=== PATIENT | female | born 1975 | race Caucasian/White ===

== ENCOUNTER → 2020-01-02 | Outpatient (CLI) | payer OTHER ==
[2020-01-02 13:43] VITALS: BP 149/99
== END | disposition home or self-care (01) ==
LOC: SURG 12:11
PROVIDERS: ATTEND Anesthesiology Pain Medicine
DX: M54.16 Radiculopathy, lumbar region (principal); M47.816 Spondylosis without myelopathy or radiculopathy, lumbar region; Z79.891 Long term (current) use of opiate analgesic; Z98.890 Other specified postprocedural states
CPT/HCPCS: 62323

== ENCOUNTER 2020-11-23 23:50 | Emergency (ER) | payer OTHER ==
[~2020-11-23] VITALS: Ht 165.1 cm; Wt 117.0 kg
[2020-11-24] MEDS ORDERED: DEXAMETHASONE SOD PHOS 4 MG/ML VIAL. ONE (00:49)
[2020-11-24] MEDS ORDERED: KETOROLAC 15 MG/ML VIAL. ONE (00:49)
[2020-11-24] MEDS ORDERED: IV NORMAL SALINE 1,000ML 1,000 ML IV ONE (01:15)
[2020-11-24] MEDS ORDERED: KETOROLAC 15 MG/ML VIAL. IVP ONE (01:15)
--- NOTE | 2020-11-24 01:18 | EKG ---
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
[2020-11-24] MEDS ORDERED: DEXAMETHASONE SOD PHOS 4 MG/ML VIAL. IV ONE (01:30)
[2020-11-24] MEDS ORDERED: CONTRAST GIVEN. MC PRN (01:30)
[2020-11-24] MEDS ORDERED: IOHEXOL 350 MG/ML 100 ML VIAL. IV ONE (01:30)
[2020-11-24 01:39] LABS: BASO % 0 % (0-3); EOS # 0.1 x10^3/uL (0.0-0.7); EOS % 1 % (0-3); HEMATOCRIT 48.2 % (36.0-47.0); HEMOGLOBIN 15.8 g/dL (12.0-15.5); LYMPH # 1.2 x10^3/uL (1.0-4.8); LYMPH % 14 % (24-48); MEAN CORPUSCULAR HEMOGLOBIN 28 pg (25-35); MEAN CORPUSCULAR HGB CONC 33 g/dL (31-37); MEAN CORPUSCULAR VOLUME 86 fL (79-100); MONO # 0.4 x10^3/uL (0.0-1.1); MONO % 4 % (0-9); NEUT # 7.1 x10^3uL (1.8-7.7); NEUT % 81 % (31-73); PLATELET COUNT 200 x10^3/uL (140-400); RED BLOOD COUNT 5.57 x10^6/uL (3.50-5.40); RED CELL DISTRIBUTION WIDTH 12.9 % (11.5-14.5); WHITE BLOOD COUNT 8.8 x10^3/uL (4.0-11.0)
[2020-11-24 01:47] LABS: ANION GAP 12 (6-14); BLOOD UREA NITROGEN 14 mg/dL (7-20); BUN/CREATININE RATIO 16 (6-20); CALCIUM 8.7 mg/dL (8.5-10.1); CARBON DIOXIDE 27 mmol/L (21-32); CHLORIDE 100 mmol/L (98-107); CREATININE 0.9 mg/dL (0.6-1.0); GFR 67.4; GLUCOSE 112 mg/dL (70-99); POTASSIUM 3.9 mmol/L (3.5-5.1); SODIUM 139 mmol/L (136-145)
[2020-11-24 02:05] LABS: ALBUMIN 3.9 g/dL (3.4-5.0); ALBUMIN/GLOBULIN RATIO 1.1 (1.0-1.7); ALK PHOS 126 U/L (46-116); ALT (SGPT) 21 U/L (14-59); AST (SGOT) 23 U/L (15-37); LIPASE 76 U/L (73-393); TOTAL BILIRUBIN 0.2 mg/dL (0.2-1.0); TOTAL PROTEIN 7.5 g/dL (6.4-8.2)
--- NOTE | 2020-11-24 02:59 | RAD ---
PQRS Compliance Statement: One or more of the following individualized dose reduction techniques were utilized for this examinat ion: 1. Automated exposure control 2. Adjustment of the mA and/or kV according to patient size 3. Use of iterative reconstruction technique CTA CHEST 11/24/2020 2:[address] angiography chest with contrast 11/24/2020 2:13 AM INDICATION: Covid patient under investigation. COMPARISON: None available TECHNIQUE: Axial CT images of the chest were obtained after the intravenous administration of nonioni c contrast. Coronal and sagittal reformats are provided. Maximum intensity projection images of the t horacic vasculature are provided. FINDINGS: The thyroid gland is normal in appearance. There is a 10 mm right hilar lymph node (series 6, image 4 7). The heart size is within normal limits. No significant pericardial effusion. Thoracic aorta is no rmal in course and caliber. There is adequate opacification of the pulmonary arterial system. There there are no filling defects within the pulmonary arterial system to suggest acute or chronic pulmonary embolus. There are no suspicious solid noncalcified pulmonary nodules. Patchy nodular groundglass opacities ar e identified within the superior segment left lower lobe measuring up to 1.5 x 1.5 cm (series 6, imag e 60), central right upper lobe and throughout the right lower lobe measuring up to 2.2 x 1.7 cm (ser ies 6, image 53). There are no pleural effusions. No pulmonary vascular congestion or pneumothorax. Visualized portions of the upper abdomen are within normal limits. No suspicious osseous lesions are visualized. Battery pack projects over the right gluteal soft tissues with epidural spinal leads iden tified terminating at the T7 vertebral level. IMPRESSION: There is no evidence for acute or chronic pulmonary embolism. Patchy nodular groundglass opacities are identified within the lungs predominantly involving the lowe r lobes bilaterally. Findings are suspicious for pneumonitis of infectious/inflammatory etiology. 3 m onth follow-up chest CT is recommended to ensure resolution. Borderline right hilar lymph node may be reactive. Attention on follow-up exam is recommended. Electronically signed by: Lexy Schulte MD (11/24/2020 2:56 AM) [facility]
[2020-11-24] MEDS ORDERED: AZIT250T6 PO (03:06)
--- NOTE | 2020-11-24 03:06 | PHYS DOC ---
Past History Past Medical History: No Pertinent History Past Surgical History: , Other Additional Past Surgical Histo: lumbar disectomy and fusion L5 & S1, neuro stimulator rt back, gastric slee Alcohol Use: None General Adult EDM: Chief Complaint: COUGH HPI: HPI: Patient is a [age] year old [sex] who presents with [] Review of Systems: Review of Systems: Constitutional: Denies fever or chills Eyes: Denies change in visual acuity HENT: Denies nasal congestion or sore throat Respiratory: Denies cough or shortness of breath Cardiovascular: Denies chest pain or edema GI: Denies abdominal pain, nausea, vomiting, bloody stools or diarrhea : Denies dysuria Musculoskeletal: Denies back pain or joint pain Integument: Denies rash Neurologic: Denies headache, focal weakness or sensory changes Endocrine: Denies polyuria or polydipsia Lymphatic: Denies swollen glands Psychiatric: Denies depression or anxiety Current Medications: Current Meds: Current Medications Medications (Trade) Dose Ordered Sig/Jaky Start Time Stop Time Status Last Admin Dose Admin Dexamethasone Sodium Phosphate (Decadron) 10 mg 1X ONCE 11/24/20 01:30 11/24/20 01:31 DC 11/24/20 02:40 10 MG Info (Do NOT chart on this entry -- for MONITORING) 1 each PRN DAILY PRN 11/24/20 01:30 11/26/20 01:29 Iohexol (Omnipaque 350 Mg/ml) 100 ml 1X ONCE 11/24/20 01:30 11/24/20 01:31 DC 11/24/20 02:21 100 ML Ketorolac Tromethamine (Toradol 15mg Vial) 15 mg 1X ONCE 11/24/20 01:15 11/24/20 01:17 DC 11/24/20 02:40 15 MG Sodium Chloride 1,000 ml @ 1,000 mls/hr 1X ONCE 11/24/20 01:15 11/24/20 02:14 DC 11/24/20 02:41 1,000 MLS/HR Allergies: Allergies: Allergies Coded Allergies Type Severity Reaction Last Updated Verified No Known Drug Allergies 01/02/20 No Physical Exam: PE: Constitutional: Well developed, well nourished, no acute distress, non-toxic appearance. [] HENT: Normocephalic, atraumatic, bilateral external ears normal, oropharynx moist, no oral exudates, nose normal. [] Eyes: PERRLA, EOMI, conjunctiva normal, no discharge. [] Neck: Normal range of motion, no tenderness, supple, no stridor. [] Cardiovascular:Heart rate regular rhythm, no murmur [] Lungs & Thorax: Bilateral breath sounds clear to auscultation [] Abdomen: Bowel sounds normal, soft, no tenderness, no masses, no pulsatile masses. [] Skin: Warm, dry, no erythema, no rash. [] Back: No tenderness, no CVA tenderness. [] Extremities: No tenderness, no cyanosis, no clubbing, ROM intact, no edema. [] Neurologic: Alert and oriented X 3, normal motor function, normal sensory function, no focal deficits noted. [] Psychologic: Affect normal, judgement normal, mood normal. [] Current Patient Data: Labs: Laboratory Tests Test 11/24/20 01:00 White Blood Count 8.8 x10^3/uL (4.0-11.0) Red Blood Count 5.57 x10^6/uL (3.50-5.40) H Hemoglobin 15.8 g/dL (12.0-15.5) H Hematocrit 48.2 % (36.0-47.0) H Mean Corpuscular Volume 86 fL (79-100) Mean Corpuscular Hemoglobin 28 pg (25-35) Mean Corpuscular Hemoglobin Concent 33 g/dL (31-37) Red Cell Distribution Width 12.9 % (11.5-14.5) Platelet Count 200 x10^3/uL (140-400) Neutrophils (%) (Auto) 81 % (31-73) H Lymphocytes (%) (Auto) 14 % (24-48) L Monocytes (%) (Auto) 4 % (0-9) Eosinophils (%) (Auto) 1 % (0-3) Basophils (%) (Auto) 0 % (0-3) Neutrophils # (Auto) 7.1 x10^3uL (1.8-7.7) Lymphocytes # (Auto) 1.2 x10^3/uL (1.0-4.8) Monocytes # (Auto) 0.4 x10^3/uL (0.0-1.1) Eosinophils # (Auto) 0.1 x10^3/uL (0.0-0.7) Basophils # (Auto) 0.0 x10^3/uL (0.0-0.2) Prothrombin Time 9.5 SEC (9.4-11.4) Prothrombin Time INR 0.9 (0.9-1.1) Activated Partial Thromboplast Time 27 SEC (23-33) Sodium Level 139 mmol/L (136-145) Potassium Level 3.9 mmol/L (3.5-5.1) Chloride Level 100 mmol/L (98-107) Carbon Dioxide Level 27 mmol/L (21-32) Anion Gap 12 (6-14) Blood Urea Nitrogen 14 mg/dL (7-20) Creatinine 0.9 mg/dL (0.6-1.0) Estimated GFR (Cockcroft-Gault) 67.4 BUN/Creatinine Ratio 16 (6-20) Glucose Level 112 mg/dL (70-99) H Lactic Acid Level 1.9 mmol/L (0.4-2.0) Calcium Level 8.7 mg/dL (8.5-10.1) Magnesium Level 2.0 mg/dL (1.8-2.4) Total Bilirubin 0.2 mg/dL (0.2-1.0) Aspartate Amino Transferase (AST) 23 U/L (15-37) Alanine Aminotransferase (ALT) 21 U/L (14-59) Alkaline Phosphatase 126 U/L (46-116) H Creatine Kinase 44 U/L (26-192) Creatine Kinase MB (Mass) < 0.5 ng/mL (0.0-3.6) Creatine Kinase MB Relative Index 1.1 % (0-4) Troponin I Quantitative < 0.017 ng/mL (0-0.055) Total Protein 7.5 g/dL (6.4-8.2) Albumin 3.9 g/dL (3.4-5.0) Albumin/Globulin Ratio 1.1 (1.0-1.7) Lipase 76 U/L (73-393) Vital Signs: Vital Signs Date Time Temp Pulse Resp B/P (MAP) Pulse Ox O2 Delivery O2 Flow Rate FiO2 11/23/20 23:50 101.0 122 18 149/99 (116) 97 Room Air EKG: EKG: @0110 Sinus tachycardia at 113bpm, NO ST elevation, Q wave in III, low voltage QRS, QRS 64ms, QT/QTc 318/442ms Radiology/Procedures: Radiology/Procedures: PROCEDURE: CT ANGIOGRAPHY CHEST PQRS Compliance Statement: One or more of the following individualized dose reduction techniques were utilized for this examination: 1. Automated exposure control 2. Adjustment of the mA and/or kV according to patient size 3. Use of iterative reconstruction technique CTA CHEST 11/24/2020 2:[address] angiography chest with contrast 11/24/2020 2:13 AM INDICATION: Covid patient under investigation. COMPARISON: None available TECHNIQUE: Axial CT images of the chest were obtained after the intravenous admi nistration of nonionic contrast. Coronal and sagittal reformats are provided. Maximum intensity projection images of the thoracic vasculature are provided. FINDINGS: The thyroid gland is normal in appearance. There is a 10 mm right hilar lymph node (series 6, image 47). The heart size is within normal limits. No significant pericardial effusion. Thoracic aorta is normal in course and caliber. There is adequate opacification of the pulmonary arterial system. There there are no filling defects within the pulmonary arterial system to suggest acute or chronic pulmonary embolus. There are no suspicious solid noncalcified pulmonary nodules. Patchy nodular groundglass opacities are identified within the superior segment left lower lobe measuring up to 1.5 x 1.5 cm (series 6, image 60), central right upper lobe and throughout the right lower lobe measuring up to 2.2 x 1.7 cm (series 6, image 53). There are no pleural effusions. No pulmonary vascular congestion or pneumothorax. Visualized portions of the upper abdomen are within normal limits. No suspicious osseous lesions are visualized. Battery pack projects over the right gluteal soft tissues with epidural spinal leads identified terminating at the T7 vertebral level. IMPRESSION: There is no evidence for acute or chronic pulmonary embolism. Patchy nodular groundglass opacities are identified within the lungs predominantly involving the lower lobes bilaterally. Findings are suspicious for pneumonitis of infectious/inflammatory etiology. 3 month follow-up chest CT is recommended to ensure resolution. Borderline right hilar lymph node may be reactive. Attention on follow-up exam is recommended. Electronically signed by: Lexy Schulte MD (11/24/2020 2:56 AM) [facility] Heart Score: Risk Factors: Risk Factors: DM, Current or recent (<one month) smoker, HTN, HLP, family history of CAD, obesity. Risk Scores: Score 0 - 3: 2.5% MACE over next 6 weeks - Discharge Home Score 4 - 6: 20.3% MACE over next 6 weeks - Admit for Clinical Observation Score 7 - 10: 72.7% MACE over next 6 weeks - Early Invasive Strategies Course & Med Decision Making: Course & Med Decision Making Pertinent Labs and Imaging studies reviewed. (See chart for details) [] Dragon Disclaimer: Dragon Disclaimer: This electronic medical record was generated, in whole or in part, using a voice recognition dictation system. Departure Departure: Impression: Primary Impression: Suspected 2019 novel coronavirus infection Disposition: DC HOME SELF CARE/HOMELESS Condition: STABLE Referrals: CAROLINA ERWIN MD (PCP) Patient Instructions: Incentive Spirometer, Viral Syndrome Additional Instructions: You have been tested for or diagnosed with COVID-19. It is an infection caused by a new type of coronavirus. COVID-19 will cause cold-like or mild flu symptoms in most. It can cause more severe symptoms like problems breathing in some. There is no treatment for COVID-19. The body will clear the infection over time. Self-care will help to ease discomfort. Steps to Take: Self-Care Rest as needed. Healthy habits may help you feel better. Steps include: Choose healthy foods including fruits and vegetables. Drink water throughout the day. Get plenty of sleep each night. If you smoke, try to quit. It may ease breathing. Avoid alcohol. Keep Others Healthy The virus can spread to others. Droplets are released every time you sneeze or cough. The droplets can get into the mouth, nose, or eyes of people near you and lead to infection. To lower the chances of spreading COVID-19 to others: Stay at home until your doctor has said it is safe to leave. If you tested positive this will mean staying isolated until both of the following are true: At least 7 days have passed since the start of illness. You are free of fever for at least 72 hours without the use of medicine. During this time: - Avoid public areas, events, or transportation. Do not return to work or school until your doctor has said it is safe to do so. - Call ahead if you need to go to a medical center. Let them know you may have COVID-19. It will help them guide you where to go. They may also ask you to wear a facemask when you come to the office. - If you call for emergency medical services, let them know you may have COVID- 19. While at home: - Try to avoid close contact with others. Stay about 6 feet away. - If possible, spend most of your time in a separate room from others. - Use a face mask if you will be in close contact with others such as sharing a room or vehicle. - Have someone wipe down common surfaces in the home. Use household bead wire taper every day on areas like doorknobs, counters, or sinks. - Cough or sneeze into a tissue. Throw the tissue away right after use. If a tissue is not available, cough or sneeze into your elbow. - Wash your hands often. Wash them after sneezing or coughing. Use soap and water and wash for at least 20 seconds. Alcohol based hand cleaner wall can be used if soap and water is not available. - Do not prepare food for others. Avoid sharing personal items like forks, spoons, or toothbrushes. - Avoid close contact with pets while you are sick. There is no evidence of the virus passing to pets. This is a safety step until more is known about this virus. Isolation can be frustrating. Social interaction can help. Keep in touch with friends and family through phone and tech options. You can still interact with others in your home, just keep a safe distance of about 6 feet. Follow-up: Your doctors office will check in with you to see if there are any changes in your health. You may be asked to keep track of symptoms to share with them. They will also let you know when you are clear to be in public again. Problems to Look Out For: Contact your doctor if your recovery is not going as you expect. Get emergency care if you have problems such as: - Trouble breathing - Nonstop chest pain or pressure - Changes in awareness, confusion, or problems waking - Lips or face have bluish color - Worsening of symptoms If you think you have an emergency, call for emergency medical services right away. [facility] Azithromycin (AZITHROMYCIN TABLET) 250 Mg Tablet 1 PKG PO UD for COVID pneumonia, #6 TAB Take 2 tablets today and then one tablet every day thereafter for the next 4 days Prov: ADRIANA CHIANG DO 11/24/20 ADRIANA CHIANG DO Nov 24, 2020 03:06
[2020-11-24 03:25] VITALS: BP 127/70
== END 2020-11-24 03:25 | disposition home or self-care (01) ==
LOC: ER 23:50
DX: U07.1 COVID-19 (principal)
CPT/HCPCS: 36415; 71275; 80053; 82553; 83605; 83690; 83735; 84484; 85025; 85610; 85730; 93005; 96361; 96374; 96375; 99285; C9803; J1100; J1885; J7030; Q9967; U0003

== ENCOUNTER 2021-07-02 00:25 | Emergency (ER) | payer OTHER ==
[~2021-07-02] VITALS: Ht 165.1 cm; Wt 116.0 kg
[~2021-07-02 00:25] MED LIST: AZIT250T6 PO
--- NOTE | 2021-07-02 00:32 | PHYS DOC ---
Past History Past Medical History: No Pertinent History, Sciatica Past Surgical History: , Lumbar Laminectomy, Other Additional Past Surgical Histo: lumbar disectomy and fusion L5 & S1, neuro stimulator rt back, gastric slee Smoking: Non-smoker Alcohol Use: None Drug Use: None General Adult HPI: HPI: "..I have chronic pain.. fibromyalgia.. and Chronic back pain.. . .I had stimulatory place for my chronic back pain.. and I ve been turning it up... but I am still hurting... " Patient is a 45 year old female who presents with above hx and complaints Lt.abdomen and Lt. flank back pain. Patient states pain is been somewhat constant last couple days. Patient localizes more and left flank and radiates to left lower groin. Patient has extensive medical history of chronic pain, fibromyalgia, chronic back pain treated with neurostimulator and lumbar discectomy with fusion. Patient also has history of gastric sleeve placement, and tubal ligation 1999. Patient has known history of gallstones and adrenal adenoma. No history of recent trauma. No history recent travel. No specific ill contacts. No history immunosuppression. Normally follows with Dr. Erwin. Review of Systems: Review of Systems: Constitutional: Denies fever or chills Eyes: Denies change in visual acuity HENT: Denies nasal congestion or sore throat Respiratory: Denies cough or shortness of breath Cardiovascular: Denies chest pain or edema GI: Complains of left flank and abdominal pain, nausea,. Denies vomiting, bloody stools or diarrhea : Denies dysuria Musculoskeletal: Denies back pain or joint pain Integument: Denies rash Neurologic: Denies headache, focal weakness or sensory changes Endocrine: Denies polyuria or polydipsia Lymphatic: Denies swollen glands Psychiatric: Denies depression or anxiety Family History: Family History: Noncontributory to presentation Current Medications: Current Meds: See nursing for home meds Allergies: Allergies: Allergies Coded Allergies Type Severity Reaction Last Updated Verified No Known Drug Allergies 01/02/20 No Physical Exam: PE: Constitutional: Moderate acute distress, non-toxic appearance. [] HENT: Normocephalic, atraumatic, bilateral external ears normal, oropharynx moist, no oral exudates, nose normal. [] Eyes: PERRLA, EOMI, conjunctiva normal, no discharge. [] Neck: Normal range of motion, no tenderness, supple, no stridor. [] Cardiovascular:Heart rate regular rhythm, no murmur [] Lungs & Thorax: Bilateral breath sounds equal at apex on auscultation [] Abdomen: Bowel sounds normal, soft, left flank and mid left abdomen tenderness, no masses, no pulsatile masses. Old surgery scars. Mild distention. Obese. Skin: Warm, dry, no erythema, no rash. [] Back: No tenderness, left CVA tenderness. Old surgery scar. Extremities: No tenderness, no cyanosis, no clubbing, ROM intact, no edema. Some sciatica on the left noted with straight leg lift. Neurologic: Alert and oriented X 3, moves all extremities on request, has distal sensory, does have findings of sciatica tenderness on the left, no focal deficits noted. [] Psychologic: Affect anxious, judgement normal, mood normal. [] EKG: EKG: My interpretation EKG shows a sinus rhythm at 73 bpm. No acute morphology time of EKG 130 hours [] Radiology/Procedures: Radiology/Procedures: [][address] [address] IMAGING REPORT Signed PATIENT: VIRGINIE NICOLAS ACCOUNT: [id number] : 1975 LOCATION: ER AGE: 45 SEX: F EXAM STATUS: REG ER ORD. PHYSICIAN: CHANO ROMO MD REASON: Pain Lt. flank PROCEDURE: CT ABDOMEN PELVIS WO CONTRAST EXAM: CT ABDOMEN/PELVIS WITHOUT CONTRAST. HISTORY: Left flank pain. TECHNIQUE: Computed tomography of the abdomen and pelvis was performed without intravenous contrast. One or more of the following individualized dose reduction techniques were utilized for this examination: 1. Automated exposure control. 2. Adjustment of the mA and/or kV according to patient size. 3. Use of iterative reconstruction technique. COMPARISON: None. FINDINGS: Lung windows through the visualized portions of the bases reveal mild atelectasis. Bone windows reveal no suspicious lesions. A right flank spinal stimulator has electrodes along the lower thoracic central canal posteriorly. There are instrumented anterior and posterior fusion changes at L5-S1. There are no renal or ureteral calculi. There are no suspicious renal lesions without contrast. A right adrenal nodule measures 2.1 x 1.9 cm and 0 Hounsfield units. This is consistent with a benign adenoma. The left adrenal gland is unremarkable. The gallbladder is filled with lucent stones. There is no biliary dilatation. The pancreas and spleen are unremarkable. An 8 mm hypoattenuating lesion in hepatic segment 4A most likely reflects a benign cyst. There are changes of sleeve gastrectomy. The appendix is not inflamed. There is no small bowel obstruction. There is a stent within the left common iliac vein. Patency cannot be assessed without contrast. IMPRESSION: 1. No renal or ureteral calculi. 2. Cholelithiasis. 3. 2.1 cm benign right adrenal adenoma. Electronically signed by: Juan Becerra MD (07/02/2021 5:19 AM) [facility] DICTATED AND SIGNED BY: LENIN BECERRA MD DATE: 07/02/21 0515 CC: CHANO ROMO MD; CAROLINA ERWIN MD ~MTH0 0 Heart Score: C/O Chest Pain: No HEART Score for Chest Pain: HEART Score for Chest Pain Response (Comments) Value History Slighlty/Non-Suspicious 0 ECG Normal 0 Age >45 - < 65 1 Risk Factors 1 or 2 Risk Factors 1 Troponin < Normal Limit 0 Total 2 Risk Factors: Risk Factors: DM, Current or recent (<one month) smoker, HTN, HLP, family history of CAD, obesity. Risk Scores: Score 0 - 3: 2.5% MACE over next 6 weeks - Discharge Home Score 4 - 6: 20.3% MACE over next 6 weeks - Admit for Clinical Observation Score 7 - 10: 72.7% MACE over next 6 weeks - Early Invasive Strategies Course & Med Decision Making: Course & Med Decision Making Pertinent Labs and Imaging studies reviewed. (See chart for details) Patient pain resolved while waiting during work-up. Patient does have a history of chronic pain and sciatica. However this exam is more consistent with renal colic presentation on Lt. Patient stay on a clear fluid diet for the next couple days. No solids. No milk products. Allow bowel rest. Follow-up primary care. Return if any concerns. Self isolate until known results of Covid testing. Does have findings of gallstones and adrenal adenoma however the pain tonight is not on the right. Impression: 1. Severe left flank and mid abdomen pain-renal colic? 2. History of chronic pain and fibromyalgia 3. Gallstones 4. Renal adenoma 2.l cm 5. Viral syndrome 6. Mild elevation alk phos 129 7. Elevated glucose 141 8. Leukocytosis 14.3 [] Sandra Disclaimer: Sandra Disclaimer: This electronic medical record was generated, in whole or in part, using a voice recognition dictation system. Departure Departure: Referrals: CAROLINA ERWIN MD (PCP) CHANO ROMO MD Jul 02, 2021 00:32
[2021-07-02] MEDS ORDERED: ONDANSETRON PF 4 MG/2 ML VIAL. IVP ONE (00:45)
[2021-07-02] MEDS ORDERED: IV RINGERS SOLUTION,LACTATED 1,000 ML IV SCH (00:45)
[2021-07-02] MEDS ORDERED: FAMOTIDINE 20 MG/2 ML VIAL IVP ONE (00:45)
[2021-07-02] MEDS ORDERED: KETOROLAC 30 MG/ML VIAL. IVP ONE (01:00)
[2021-07-02] MEDS ORDERED: ORPHENADRINE CITRATE 60 MG/2 ML VIAL. IV ONE (01:00)
[2021-07-02 01:26] LABS: BASO % 0 % (0-3); EOS % 0 % (0-3); HEMATOCRIT 43.6 % (36.0-47.0); HEMOGLOBIN 14.4 g/dL (12.0-15.5); LYMPH # 1.8 x10^3/uL (1.0-4.8); LYMPH % 13 % (24-48); MEAN CORPUSCULAR HEMOGLOBIN 29 pg (25-35); MEAN CORPUSCULAR HGB CONC 33 g/dL (31-37); MEAN CORPUSCULAR VOLUME 87 fL (79-100); MONO # 0.7 x10^3/uL (0.0-1.1); MONO % 5 % (0-9); NEUT # 11.8 x10^3uL (1.8-7.7); NEUT % 82 % (31-73); PLATELET COUNT 285 x10^3/uL (140-400); RED BLOOD COUNT 5.02 x10^6/uL (3.50-5.40); RED CELL DISTRIBUTION WIDTH 13.2 % (11.5-14.5); WHITE BLOOD COUNT 14.3 x10^3/uL (4.0-11.0)
[2021-07-02 01:46] LABS: ANION GAP 8 (6-14); BLOOD UREA NITROGEN 17 mg/dL (7-20); CALCIUM 8.9 mg/dL (8.5-10.1); CARBON DIOXIDE 30 mmol/L (21-32); CHLORIDE 104 mmol/L (98-107); CREATININE 0.8 mg/dL (0.6-1.0); GFR 77.2; GLUCOSE 141 mg/dL (70-99); POTASSIUM 3.9 mmol/L (3.5-5.1); SODIUM 142 mmol/L (136-145)
[2021-07-02 01:48] LABS: ALBUMIN 3.9 g/dL (3.4-5.0); ALK PHOS 129 U/L (46-116); ALT (SGPT) 17 U/L (14-59); AST (SGOT) 23 U/L (15-37); LIPASE 62 U/L (73-393); TOTAL BILIRUBIN 0.1 mg/dL (0.2-1.0); TOTAL PROTEIN 7.6 g/dL (6.4-8.2)
--- NOTE | 2021-07-02 01:49 | EKG ---
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
[2021-07-02 01:52] LABS: DIRECT BILIRUBIN < 0.1 mg/dL (0.0-0.2)
[2021-07-02 01:54] LABS: BARBITURATES NEG (NEG); BENZODIAZEPINES NEG (NEG); CANNABINOIDS NEG (NEG); COCAINE NEG (NEG); METHADONE NEG (NEG); OPIATES POS (NEG); PHENCYCLIDINE NEG (NEG)
[2021-07-02 01:55] LABS: AMPHETAMINE/METHAMPHETAMINE NEG (NEG)
[2021-07-02 02:00] LABS: BILIRUBIN,URINE NEG (NEG); CLARITY,URINE CLEAR; COLOR,URINE YELLOW; GLUCOSE,URINE NEG (NEG); NITRITE,URINE NEG (NEG); UROBILINOGEN,URINE 0.2 mg/dL (0.2 mg/dL)
[2021-07-02 02:01] LABS: BACTERIA,URINE 0 /HPF (0-FEW); RBC,URINE OCC /HPF (0-2); SQUAMOUS EPITHELIAL CELL,UR OCC /LPF
[2021-07-02] MEDS ORDERED: MORPHINE SULFATE 10 MG/ML SYRINGE. SQ ONE (02:30)
--- NOTE | 2021-07-02 05:21 | RAD ---
EXAM: CT ABDOMEN/PELVIS WITHOUT CONTRAST. HISTORY: Left flank pain. TECHNIQUE: Computed tomography of the abdomen and pelvis was performed without intravenous contrast. One or more of the following individualized dose reduction techniques were utilized for this examinat ion: 1. Automated exposure control. 2. Adjustment of the mA and/or kV according to patient size. 3. Use of iterative reconstruction technique. COMPARISON: None. FINDINGS: Lung windows through the visualized portions of the bases reveal mild atelectasis. Bone win dows reveal no suspicious lesions. A right flank spinal stimulator has electrodes along the lower tho racic central canal posteriorly. There are instrumented anterior and posterior fusion changes at L5-S 1. There are no renal or ureteral calculi. There are no suspicious renal lesions without contrast. A right adrenal nodule measures 2.1 x 1.9 cm and 0 Hounsfield units. This is consistent with a benign adenoma. The left adrenal gland is unremarkable. The gallbladder is filled with lucent stones. There is no biliary dilatation. The pancreas and spleen are unremarkable. An 8 mm hypoattenuating lesion in hepatic segment 4A most likely reflects a benign cyst. There are changes of sleeve gastrectomy. The appendix is not inflamed. There is no small bowel obstru ction. There is a stent within the left common iliac vein. Patency cannot be assessed without contras t. IMPRESSION: 1. No renal or ureteral calculi. 2. Cholelithiasis. 3. 2.1 cm benign right adrenal adenoma. Electronically signed by: Juan Becerra MD (07/02/2021 5:19 AM) [facility]
--- NOTE | 2021-07-02 05:23 | RAD ---
EXAM: 2 VIEW ABDOMEN WITH ONE VIEW CHEST. HISTORY: Left flank pain. COMPARISON: None. FINDINGS: A frontal view of the chest and supine/upright views of the abdomen are obtained. There are no confluent infiltrates. There is no pneumothorax or pleural effusion. The heart is not en larged. There is no pneumoperitoneum. There are no distended small bowel loops or significant air-fluid level s. There is gas distally. A lower thoracic spinal stimulator, a left common iliac stent, and L5-S1 instrumented anterior and po sterior fusion are noted. An anastomotic suture line is noted along the stomach. IMPRESSION: 1. No confluent infiltrates. 2. No evidence of obstruction. Electronically signed by: Juan Becerra MD (07/02/2021 5:20 AM) [facility]
[2021-07-02 06:10] VITALS: BP 155/90
== END 2021-07-02 06:10 | disposition home or self-care (01) ==
LOC: ER 00:25
DX: K80.20 Calculus of gallbladder without cholecystitis without obstruction (principal); D30.01 Benign neoplasm of right kidney; B34.9 Viral infection, unspecified; D72.829 Elevated white blood cell count, unspecified; R73.9 Hyperglycemia, unspecified
CPT/HCPCS: 36415; 74022; 74176; 80048; 80076; 80307; 81001; 81025; 82550; 83690; 84484; 85025; 93005; 96361; 96372; 96374; 96375; 99285; J1885; J2270; J2360; J2405; J3490; J7120

== ENCOUNTER 2021-09-07 15:40 | Emergency (ER) | payer OTHER ==
[~2021-09-07] VITALS: Ht 165.1 cm; Wt 116.0 kg
--- NOTE | 2021-09-07 16:07 | PHYS DOC ---
Past History Past Medical History: No Pertinent History, Sciatica Additional Past Medical Histor: back pain (ANDRES HOOK APRN) Past Surgical History: , Lumbar Laminectomy, Other Additional Past Surgical Histo: lumbar disectomy and fusion L5 & S1, neuro stimulator rt back, gastric slee (ANDRES HOOK APRN) Smoking: Non-smoker Alcohol Use: None Drug Use: None (ANDRES HOOK APRN) General Adult EDM: Chief Complaint: LOWER EXTREMITY SWELLING HPI: HPI: Patient is a 45-year-old female who presents emergency department for bilateral lower extremity swelling. Patient reports that she started amlodipine for hypertension 1 week ago and ever since then has noted bilateral lower extremity swelling starting in her feet and walking up her leg. She states that the swelling is now worse on the left side than the right. She is also reporting erythema noted to bilateral ankles. 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 She denies any blood thinner use, injury, immobility, prolonged sitting, shortness of breath, estrogen use, chest pain, fevers. Patient's tachycardic with a heart rate of 105 upon ER arrival. (ANDRES HOOK APRN) Review of Systems: Review of Systems: 14 body systems of the review of systems have been reviewed. See HPI for pertinent positive and negative responses, otherwise all other systems are negative, nonpertinent or noncontributory (ANDRES HOOK APRN) Allergies: Allergies: Allergies Coded Allergies Type Severity Reaction Last Updated Verified No Known Drug Allergies 07/02/21 No (ANDRES HOOK APRN) Physical Exam: PE: Constitutional: Well developed, well nourished, no acute distress, non-toxic davy earance. [] HENT: Normocephalic, atraumatic, bilateral external ears normal, oropharynx moist, no oral exudates, nose normal. [] Eyes: PERRL, EOMI, conjunctiva normal, no discharge. [] Neck: Normal range of motion, no stridor Cardiovascular:Heart rate tachycardic rhythm, no murmur [] Lungs & Thorax: Bilateral breath sounds clear to auscultation [] Abdomen: Bowel sounds normal, soft, no tenderness, no masses, no pulsatile masses. [] Skin: Warm, dry, no rash, erythema noted to bilateral ankles Back: Normal range of motion Extremities: No tenderness, no cyanosis, no clubbing, ROM intact, left lower extremity: 2+ edema noted, neuro intact, range of motion intact Right lower extremity: 1+ edema noted, neuro intact, range of motion intactPositive Homans' sign left. Neurologic: Alert and oriented X 3, normal motor function, normal sensory function, no focal deficits noted. [] Psychologic: Affect normal, judgement normal, mood normal. [] (ANDRES HOOK APRN) Current Patient Data: Labs: Laboratory Tests Test 09/07/21 16:26 White Blood Count 8.0 x10^3/uL Red Blood Count 4.73 x10^6/uL Hemoglobin 13.7 g/dL Hematocrit 41.4 % Mean Corpuscular Volume 88 fL Mean Corpuscular Hemoglobin 29 pg Mean Corpuscular Hemoglobin Concent 33 g/dL Red Cell Distribution Width 13.6 % Platelet Count 254 x10^3/uL Neutrophils (%) (Auto) 58 % Lymphocytes (%) (Auto) 31 % Monocytes (%) (Auto) 7 % Eosinophils (%) (Auto) 3 % Basophils (%) (Auto) 1 % Neutrophils # (Auto) 4.7 x10^3uL Lymphocytes # (Auto) 2.5 x10^3/uL Monocytes # (Auto) 0.6 x10^3/uL Eosinophils # (Auto) 0.3 x10^3/uL Basophils # (Auto) 0.1 x10^3/uL Sodium Level 140 mmol/L Potassium Level 3.7 mmol/L Chloride Level 104 mmol/L Carbon Dioxide Level 27 mmol/L Anion Gap 9 Blood Urea Nitrogen 12 mg/dL Creatinine 0.7 mg/dL Estimated GFR (Cockcroft-Gault) 90.1 BUN/Creatinine Ratio 17 Glucose Level 108 mg/dL Calcium Level 8.6 mg/dL Total Bilirubin 0.2 mg/dL Aspartate Amino Transf (AST/SGOT) 24 U/L Alanine Aminotransferase (ALT/SGPT) 21 U/L Alkaline Phosphatase 119 U/L Troponin I Quantitative < 0.017 ng/mL Total Protein 7.2 g/dL Albumin 3.4 g/dL Albumin/Globulin Ratio 0.9 (ANDRES HOOK APRN) EKG: EKG: EKG performed by ER staff at 1608 shows sinus rhythm with a rate of 93, QTC of 430, read by Dr. Chiang at 1615. [] (ANDRES HOOK APRN) Radiology/Procedures: Radiology/Procedures: []PROCEDURE: VENOUS LOWER EXTREMITY LEFT Exam: Left lower extremity venous duplex study INDICATION: Leg swelling TECHNIQUE: Using a combination of real-time ultrasound imaging and color-flow and pulse Doppler imaging techniques along with graded compression and augmentation, duplex evaluation of the deep venous systems of leftlower extremity was performed. Multiple images were obtained. Findings: There is no sonographic evidence for deep venous thrombosis involving the visualized deep venous structures of the left lower extremity. IMPRESSION: No acute DVT in the left lower extremities. Electronically signed by: Radha Edmonds MD (09/07/2021 4:53 PM) [facility] DICTATED AND SIGNED BY: RADHA EDMONDS MD DATE: 09/07/211652 CC: CAROLINA ERWIN MD; ANDRES HOOK APRN ~MTH0 0 (ANDRES HOOK APRN) Heart Score: C/O Chest Pain: No Risk Factors: Risk Factors: DM, Current or recent (<one month) smoker, HTN, HLP, family history of CAD, obesity. Risk Scores: Score 0 - 3: 2.5% MACE over next 6 weeks - Discharge Home Score 4 - 6: 20.3% MACE over next 6 weeks - Admit for Clinical Observation Score 7 - 10: 72.7% MACE over next 6 weeks - Early Invasive Strategies (ANDRES HOOK APRN) Course & Med Decision Making: Course & Med Decision Making Pertinent Labs and Imaging studies reviewed. (See chart for details) [] Patient is a 45-year-old female being seen in the ER for bilateral lower extremity swelling worse on the left than the right that started 1 week ago after starting amlodipine. Patient has a history of DVTs with stent placement. He has a positive left Homans' sign. Her Wells score is 2 indicating moderate risk for DVT for previously documented dvt and ocalized tenderness along the deep venous system. Work-up in the ER consisted of blood work and ultrasound of left lower extremity. Ultrasound was negative for any DVT. Lab work is unremarkable. It is likely that patient is experiencing bilateral lower extremity swelling as a side effect of her calcium channel sera. Patient advised to follow-up with her primary care provider. She was advised to elevate extremities to help with edema. HR is a normal rate at 95bpm. I discussed with patient all findings and diagnostic testing as well as the need to follow-up with PCP for further evaluation and treatment or return to the ER if any new or worsening symptoms. Strict return precautions were also discussed at length. Patient voiced understanding and agreement with the plan. Patient is hemodynamically stable at the time of disposition. (ANDRES HOOK APRN) Dragon Disclaimer: Dragon Disclaimer: This electronic medical record was generated, in whole or in part, using a voice recognition dictation system. (ANDRES HOOK APRN) Departure Departure: Impression: Primary Impression: Lower extremity edema Disposition: HOME / SELF CARE / HOMELESS Condition: GOOD Referrals: CAROLINA ERWIN MD (PCP) Patient Instructions: Edema Additional Instructions: You are seen in the emergency department for lower leg swelling. Ultrasound was performed that was negative for any DVT. Your blood work was unremarkable. A common side effect of calcium channel sera use which is why amlodipine is is lower extremity swelling. You can use elevation to help with the swelling. Follow-up with your primary care provider tomorrow regarding your ER visit. Please return to the emergency department if you develop chest pain, shortness of breath, increased swelling, increased pain, high fevers refractory to treatment, intractable nausea or vomiting. EMERGENCY DEPARTMENT GENERAL DISCHARGE INSTRUCTIONS Thank you for coming to [facility] (ED) today and trusting us with you care. We trust that you had a positivie experience in our Emergency Department. If you wish to speak to the department management, you may call the director at [phone]. YOUR FOLLOW UP INSTRUCTIONS ARE FOLLOWS: 1. Do you have a private Doctor? If you do not have a private doctor, please ask for a resource list of physicians or clinics that may be able to assist you with follow up care. 2. The Emergency Physician has interpreted your x-rays. The X-Ray specialist will also review them. If there is a change in the findings, you will be notified in 48 hours when at all possible. 3. A lab test or culture has been done, your results will be reviewed and you will be notified if you need a change in treatment. ADDITIONAL INSTRUCTIONS AND INFORMATION: 1. Your care today has been supervised by a physician who is specially trained in emergency care. Many problems require more than one evaluation for a complete diagnosis and treatment. We recommend that you schedule your follow up appointment as recommended to ensure complete treatment of you illness or injury. If you are unable to obtain follow up care and continue to have a problem, or if your condition worsens, we recommend that you return to the ED. 2. We are not able to safely determine your condition over the phone nor are we able to give sound medical advice over the phone. For these safety reasons, if you call for medical advice we will ask you to come to the ED for further evaluation. 3. If you have any questions regarding these discharge instructions please call the ED at [phone]. SAFETY INFORMATION: In the interest of safety, wellness, and injury prevention; we encourage you to wear your sealbelt, if you smoke; quite smoking, and we encourage family to use a protective helmet for bicycling and other sporting events that present an increased risk for head injury. IF YOUR SYMPTOMS WORSEN OR NEW SYMPTOMS DEVELOP, OR YOU HAVE CONCERNS ABOUT YOUR CONDITION; OR IF YOUR CONDITION WORSENS WHILE YOU ARE WAITING FOR YOUR FOLLOW UP APPOINTMENT; EITHER CONTACT YOUR PRIMARY CARE DOCTOR, THE PHYSICIAN WHOSE NAME AND NUMBER YOU WERE GIVEN, OR RETURN TO THE ED IMMEDIATELY. Attending Signature Attending Signature I have reviewed the PA/CALIBRATION ENGINEER's note and plan of care. I was available for consulta tion as needed during the patient's visit in the emergency department. I agree with the clinical impression, plan, and disposition. (ADRIANA CHIANG DO) ANDRES HOOK APRN Sep 07, 2021 16:07 ADRIANA CHIANG DO Sep 08, 2021 01:35
--- NOTE | 2021-09-07 16:19 | EKG ---
[address] [address] Test Date: 2021-09-07 Test Time: 16:08:35 Pat Name: VIRGINIE NICOLAS Department: Room: Gender: F Manager Port: [place] : 1975 Requested By: ANDRES HOOK Order Number: [id number] Reading MD: Nathaniel Jiang MD Measurements Intervals [place] Rate: 93 P: 42 UT: 148 QRS: 9 QRSD: 68 T: 10 QT: 344 QTc: 430 Interpretive Statements SINUS RHYTHM Electronically Signed On 09-13-2021 11:53:02 CDT by Nathaniel Jiang MD
[2021-09-07 16:53] LABS: CALCIUM 8.6 mg/dL (8.5-10.1); CREATININE 0.7 mg/dL (0.6-1.0); GFR 90.1; POTASSIUM 3.7 mmol/L (3.5-5.1)
[2021-09-07 16:54] LABS: BASO # 0.1 x10^3/uL (0.0-0.2); BASO % 1 % (0-3); EOS # 0.3 x10^3/uL (0.0-0.7); EOS % 3 % (0-3); HEMATOCRIT 41.4 % (36.0-47.0); HEMOGLOBIN 13.7 g/dL (12.0-15.5); LYMPH # 2.5 x10^3/uL (1.0-4.8); LYMPH % 31 % (24-48); MEAN CORPUSCULAR HEMOGLOBIN 29 pg (25-35); MEAN CORPUSCULAR HGB CONC 33 g/dL (31-37); MEAN CORPUSCULAR VOLUME 88 fL (79-100); MONO # 0.6 x10^3/uL (0.0-1.1); MONO % 7 % (0-9); NEUT # 4.7 x10^3uL (1.8-7.7); NEUT % 58 % (31-73); PLATELET COUNT 254 x10^3/uL (140-400); RED BLOOD COUNT 4.73 x10^6/uL (3.50-5.40); RED CELL DISTRIBUTION WIDTH 13.6 % (11.5-14.5)
--- NOTE | 2021-09-07 16:56 | RAD ---
Exam: Left lower extremity venous duplex study INDICATION: Leg swelling TECHNIQUE: Using a combination of real-time ultrasound imaging and color-flow and pulse Doppler imagi ng techniques along with graded compression and augmentation, duplex evaluation of the deep venous sy stems of leftlower extremity was performed. Multiple images were obtained. Findings: There is no sonographic evidence for deep venous thrombosis involving the visualized deep venous stru ctures of the left lower extremity. IMPRESSION: No acute DVT in the left lower extremities. Electronically signed by: Radha Shook MD (09/07/2021 4:53 PM) [facility]
[2021-09-07 17:10] LABS: ALBUMIN 3.4 g/dL (3.4-5.0); ALBUMIN/GLOBULIN RATIO 0.9 (1.0-1.7); TOTAL BILIRUBIN 0.2 mg/dL (0.2-1.0); TOTAL PROTEIN 7.2 g/dL (6.4-8.2)
[2021-09-07 18:03] VITALS: BP 152/81
== END 2021-09-07 18:05 | disposition home or self-care (01) ==
LOC: ER 15:40
DX: R60.0 Localized edema (principal)
CPT/HCPCS: 36415; 80053; 84484; 85025; 93005; 93971; 99285